=== PATIENT | male | born 1975 | race Caucasian/White ===

== ENCOUNTER 2017-08-15 00:09 | Emergency (ER) | payer OTHER ==
[~2017-08-15] VITALS: Ht 185.4 cm; Wt 69.3 kg
[2017-08-15 00:16] VITALS: BP 126/79; PULSE 71; TEMP 36.7; O2SAT 95; Ht 185.4 cm; Wt 69.3 kg
[2017-08-15] MEDS ORDERED: DOXYCYCLINE HYCLATE 100 MG CAP PO ONE ×2 (00:30)
--- NOTE | 2017-08-15 00:32 | EMERGENCY ROOM VISIT NOTE ---
History Report prepared by Alyssa: Wallace Kothari Under the Supervision of: Dr. Lasha Ryan M.D. First contact with patient: 00:23 Chief Complaint: BITE Stated Complaint: TICK BITE History of Present Illness The patient is a 41 year old male who presents to the Emergency Room with complaints of a sudden tick bite occurring earlier today. The patient states that he was walking around earlier today, and he found a tick on his upper back. He states that he feels tender in that area. He states that he was not hunting and does not have any outdoor dogs. Source of History: patient Onset: earlier today Position: back Quality: other (tick bite) Timing: other (sudden) Note: Associated symptoms: Tenderness to the area Review of Systems See HPI for pertinent positives & negatives. A total of 6 systems reviewed and were otherwise negative. Past Medical & Surgical Surgical Problems: (1) [place] teeth extracted Social History Smoking Status: Never Smoker Marital Status: single Occupation Status: [employer] student Allergies Coded Allergies: No Known Allergies (Unverified , 04/09/17) Physical Exam Vital Signs Date Time Temp Pulse Resp B/P (MAP) Pulse Ox O2 Delivery O2 Flow Rate FiO2 08/15/17 00:16 36.7 71 20 126/79 95 Room Air Physical Exam GENERAL: Patient is a healthy-appearing well-nourished male HEAD: Normocephalic atraumatic EYES: Ocular movements intact pupils equal and react to light OROPHARYNX mucous membranes are moist no exudates present no erythema or edema present NECK: Supple no nuchal rigidity CHEST: Good equal expansion LUNGS: Clear and equal to auscultation CARDIAC: Normal S1 and S2 ABDOMEN: Soft nontender no guarding BACK: No CVA tenderness. There is an area of reddened skin the size of a nickel. No tick parts visualized. EXTREMITIES: No pain upon palpation normal muscle strength in all groups no clubbing cyanosis or edema NEURO: Patient is following commands and answering questions appropriately. Alert and oriented x3 Cranial Nerves 2-12 grossly intact Medical Decision & Procedures Medications Administered Medications (Trade) Dose Ordered Sig/Vimal Route Start Time Stop Time Status Last Admin Dose Admin Doxycycline Hyclate (Vibramycin Cap) 100 mg ONE ONCE PO 08/15/17 00:30 2 00:31 DC 08/15/17 00:37 100 MG Doxycycline Hyclate (Vibramycin Cap) 100 mg ONE ONCE PO 08/15/17 00:30 08/15/17 00:31 DC 08/15/17 00:37 100 MG ED Course 0023: Past medical records reviewed. The patient was evaluated in room C6. A complete history and physical examination was performed. I discussed the discharge instructions with him, and he was discahrged home. 0030: Vibramycin Cap 100mg PO, Vibramycin Cap 100mg PO Medical Decision This is a 41-year-old male who presents emergency department complaining of a tick bite. The patient had removed the tick. I do not see any evidence of tick remaining in the wound. The patient was given 2 prophylactic doses of doxycycline. He will take the second one in the morning. Patient will return if he develops a bull's-eye rash and was in agreement with the treatment plan. Medication Reconcilliation Current Medication List: was personally reviewed by me Blood Pressure Screening Patient's blood pressure: Normal blood pressure Impression Primary Impression: Tick bite Scribe Attestation The scribe's documentation has been prepared under my direction and personally reviewed by me in its entirety. I confirm that the note above accurately reflects all work, treatment, procedures, and medical decision making performed by me. Departure Information Dispostion Home / Self-Care Referrals No Doctor, Assigned (PCP) Forms HOME CARE DOCUMENTATION FORM, IMPORTANT VISIT INFORMATION, School Instructions, Work Instructions Patient Instructions Disease Lyme Prevent, ED Bite Tick Abx Tx, ED Facts Tick, My [facility] Additional Instructions You have been examined and treated today on an emergency basis only. This is not a substitute for, or an effort to provide, complete comprehensive medical care. It is impossible to recognize and treat all injuries or illnesses in a single emergency department visit. It is therefore important that you follow up closely with your PCP. Call as soon as possible for an appointment. Thank you for your time and consideration. I look forward to speaking with you again soon. Please don't hesitate to call us if you have any questions. Problem Qualifiers Primary Impression: Tick bite Encounter type: initial encounter Qualified Codes: W57.XXXA - Bitten or stung by nonvenomous insect and other nonvenomous arthropods, initial encounter
[2017-08-15] MEDS ORDERED: EMPTY 8 DRAM VIAL ONE (00:35)
== END 2017-08-15 00:40 | disposition home or self-care (01) ==
LOC: C.EDB 00:10 → C.EDC 00:40
DX: T14.8XXA Other injury of unspecified body region, initial encounter (principal); W57.XXXA Bitten or stung by nonvenomous insect and other nonvenomous arthropods, initial encounter